=== PATIENT | male | born 1945 | race Caucasian/White ===

== ENCOUNTER 2017-02-17 19:28 | Emergency (ER) | payer MEDICARE, BC ==
[~2017-02-17] VITALS: Ht 177.8 cm; Wt 96.4 kg
[~2017-02-17 19:28] MED LIST: AMBIEN 10MG10 MG PO; PHENERGAN W/CO120 M1 PO
[2017-02-17 19:31] VITALS: TEMP 98
[2017-02-17] MEDS ORDERED: FLOMAX 0.40.4 MG/CAP PO (19:49)
[2017-02-17] MEDS ORDERED: NEURONTIN800 MG/TAB PO (19:50)
[2017-02-17] MEDS ORDERED: LIORESAL 1010 MG/TAB PO (19:51)
[2017-02-17] MEDS ORDERED: DITROPAN 5MG TAB5 MG PO (19:51)
[2017-02-17] MEDS ORDERED: CYMBALTA 20MG20 MG PO (19:53)
[2017-02-17 20:22] LABS: CALCIUM 9.7 mg/dL (8.4-10.2); CREATININE, serum 0.8 mg/dL (0.66-1.25); POTASSIUM 3.8 mmol/L (3.4-5.0)
[2017-02-17 23:17] LABS: PH 6 (5-8); SQUAMOUS EPITHELIAL None Seen /hpf; URINE APPEARANCE Clear; URINE BACTERIA None Seen /hpf; URINE BILIRUBIN Negative (NEGATIVE); URINE BLOOD Negative (NEGATIVE); URINE COLOR Yellow; URINE GLUCOSE Negative (NEGATIVE); URINE KETONE Negative (NEGATIVE); URINE RBC 0-2 /hpf; URINE UROBILINOGEN Negative (NEGATIVE); URINE WBC 0-2 /hpf
[2017-02-18 01:35] VITALS: BP 139/95; PULSE 70
== END 2017-02-18 01:35 | disposition home or self-care (01) ==
LOC: COL.ER 19:28
PROVIDERS: Emergency Medicine
DX: M54.5 Low back pain (principal); R32 Unspecified urinary incontinence; F17.210 Nicotine dependence, cigarettes, uncomplicated; Z98.890 Other specified postprocedural states
CPT/HCPCS: J2270

== ENCOUNTER → 2017-03-04 | Outpatient (REF) ==
[~2017-03-04] MED LIST changes: +CYMBALTA 20MG20 MG PO; +DITROPAN 5MG TAB5 MG PO; +FLOMAX 0.40.4 MG/CAP PO; +LIORESAL 1010 MG/TAB PO; +NEURONTIN800 MG/TAB PO
[2017-03-04 15:44] LABS: PSA-TOTAL 4.12 ng/mL (0-4); THYROID STIMULATING HORMONE 1.89 uIU/mL (0.465-4.680)
== END ==
LOC: ZLAB.WCH 14:17
PROVIDERS: Internal Medicine
DX: Z01.89 Encounter for other specified special examinations (principal)
CPT/HCPCS: G0103

== ENCOUNTER 2017-06-02 12:20 | Day surgery (SDC) | payer MEDICARE ==
[2017-06-02] VITALS (14 sets, daily range): BP systolic 97–156; BP diastolic 45–108; PULSE 63–83; TEMP 97.4–98
[~2017-06-02] VITALS: Ht 177.8 cm; Wt 101.2 kg
[2017-06-02] MEDS ORDERED: MOBIC15 MG PO (14:21)
[2017-06-02] MEDS ORDERED: ADIPEX-P37.5 MG PO (14:23)
[2017-06-02] MEDS ORDERED: LEVAQUIN 5500 MG/TA1 PO (14:25)
[2017-06-03 04:00] VITALS: BP 133/63; PULSE 79; TEMP 98.3
[2017-06-03 07:56] VITALS: BP 113/64; PULSE 75; TEMP 97.1
== END 2017-06-03 11:46 | disposition home or self-care (01) ==
LOC: SDCO 12:20 → JCC 17:55 → SDCO 06-03 11:46
DX: N31.2 Flaccid neuropathic bladder, not elsewhere classified (principal); N39.498 Other specified urinary incontinence; N32.81 Overactive bladder; N99.114 Postprocedural urethral stricture, male, unspecified; N48.89 Other specified disorders of penis; Z98.1 Arthrodesis status; M62.81 Muscle weakness (generalized); Z87.828 Personal history of other (healed) physical injury and trauma; Z82.49 Family history of ischemic heart disease and other diseases of the circulatory system
CPT/HCPCS: OP; A9284; C1769; J0585; J0690; J1100; J2405; J2704; J3010; J7120; Q9967

== ENCOUNTER → 2018-04-25 | Outpatient (REF) ==
[~2018-04-25] MED LIST changes: +ADIPEX-P37.5 MG PO; +LEVAQUIN 5500 MG/TA1 PO; +MOBIC15 MG PO
== END ==
LOC: ZLAB.WCH 09:58
DX: Z01.89 Encounter for other specified special examinations (principal)
CPT/HCPCS: G0103

== ENCOUNTER → 2018-08-08 | Outpatient (REF) | LOC: ZLAB.WCH 08:21 | DX: Z01.89 Encounter for other specified special examinations (principal) ==

== ENCOUNTER 2019-05-01 13:51 | Outpatient (RCR) | payer MEDICARE | END 2019-07-30 | disposition home or self-care (01) | LOC: WSST | DX: R13.13 Dysphagia, pharyngeal phase (principal) ==

== ENCOUNTER → 2019-05-10 | Outpatient (CLI) | payer MEDICARE | LOC: COL.RAD 15:14 | DX: R13.12 Dysphagia, oropharyngeal phase (principal) ==

== ENCOUNTER 2021-11-13 18:05 | Inpatient (IN) | payer MEDICARE ==
[~2021-11-13] VITALS: Ht 180.3 cm; Wt 104.6 kg
[2021-11-13 19:25] LABS: BASO % 0.2 % (0.0-2.0); EOS % 0.2 % (0.0-4.0); GRAN # 15.8 K/mm3 (1.4-6.5); LYMPH # 0.9 K/mm3 (1.2-3.4); LYMPH % 4.7 % (20.0-51.0); MEAN CELL VOLUME 93 fl (80.0-100.0); MEAN CORPUSCULAR HEMOGLOBIN 30 pg (27-31); MEAN CORPUSCULAR HGB CONC 32 g/dl (33.0-37.0); MEAN PLATELET VOLUME 10.1 fl (7.4-10.4); MONO # 1.1 K/mm3 (0.1-0.6); MONO % 6.3 % (1.7-9.3); PLATELET COUNT 150 K/mm3 (130-400); RED BLOOD COUNT 3.66 M/mm3 (4.20-5.60); REDCELL DISTRIBUTION WIDTH-CV 13.8 % (11.5-14.5)
[2021-11-13 19:44] LABS: BILIRUBIN,TOTAL 0.7 mg/dL (0.2-1.2); C-REACTIVE PROTEIN 20.21 mg/dL (0.00-0.50); CALCIUM 8.7 mg/dL (8.4-10.2); CREATININE, serum 1.37 mg/dL (0.72-1.25); POTASSIUM 4.7 mmol/L (3.5-4.5); TOTAL PROTEIN 6.6 gm/dL (6.2-8.1)
[2021-11-13 20:33] LABS: COLLECTION METHOD IN
[2021-11-13 20:46] LABS: PH 6 (5-8); SQUAMOUS EPITHELIAL None Seen /hpf (0-10); URINE APPEARANCE Cloudy (CLEAR/HAZY); URINE BACTERIA Rare /hpf (NONE SEEN); URINE BILIRUBIN Negative (NEGATIVE); URINE BLOOD 3+ (NEGATIVE); URINE COLOR Yellow (YELLOW); URINE GLUCOSE Negative (NEGATIVE); URINE KETONE Trace (NEGATIVE); URINE LEUKOCYTE ESTERASE 3+ (NEGATIVE); URINE NITRATE Negative (NEGATIVE); URINE PROTEIN(semi-quant) 2+ (NEGATIVE); URINE RBC >50 /hpf (0-2); URINE UROBILINOGEN Negative (NEGATIVE)
--- NOTE | 2021-11-14 00:14 | NUR ---
PATIENT ADMITTED TO ROOM 354 STATED THAT HE HAS BEEING HAVING DIFFICULTY FOR THE PAST COUPLE DAYS. HE FEELS CONFUSED AND JUST NOT IN HIS RIGHT MIND, URINE IS VERY FOULD SMELLING AND LEIDY. PATIENT DID RECEIVE ROCEPHIN IN ER AND 2L OF NS. 900CC OF URINE OUTPUT NOTED UPON ARRIVAL. PATIENT STATED THAT HE WAS A QUADRAPLEGIC ABLE TO TRANSFER STAND BY X2 ASSIST. REVIEWED MEDICATION LIST WITH PATIENT PENDING HOSPITALIST REVIEW. NO C/O PAIN OR DISCOMFORT BED ALARM ON FOR FALL RISK AND SAFETY PRECAUTIONS DUE TO PATIENT HAVING 2 FALLS EARLIER IN THE DAY. CLEANSED SUPRAPUBIC CATHETER AND APPLIED DRAINAGE SPONGE. ORIENTED TO ROOM AND CALL LIGHT SYSTEM. CHANGED LEG BAG, LARGER HUTCHINSON BAG, BELOW BLADDER FLOWING ADEQUATELY. WILL CONTINUE TO MONITOR FOR ANY CHANGES.
[2021-11-14 00:24] VITALS: BP 125/64; PULSE 63; TEMP 98.5
[2021-11-14 05:12] VITALS: BP 146/85; PULSE 95; TEMP 98.1
[2021-11-14 07:06] LABS: BASO % 0.1 % (0.0-2.0); EOS % 0.2 % (0.0-4.0); GRAN # 12.7 K/mm3 (1.4-6.5); HEMOGLOBIN 10.7 g/dl (13.5-18.0); LYMPH % 6.6 % (20.0-51.0); MEAN CELL VOLUME 95 fl (80.0-100.0); MEAN CORPUSCULAR HEMOGLOBIN 30 pg (27-31); MEAN CORPUSCULAR HGB CONC 32 g/dl (33.0-37.0); MEAN PLATELET VOLUME 10.3 fl (7.4-10.4); MONO % 6.6 % (1.7-9.3); PLATELET COUNT 141 K/mm3 (130-400); RED BLOOD COUNT 3.55 M/mm3 (4.20-5.60); REDCELL DISTRIBUTION WIDTH-CV 13.9 % (11.5-14.5)
[2021-11-14 07:10] LABS: HEMATOCRIT 33.6 % (42.0-52.0)
[2021-11-14 07:44] LABS: CALCIUM 8.4 mg/dL (8.4-10.2); CREATININE, serum 1.14 mg/dL (0.72-1.25); POTASSIUM 4.3 mmol/L (3.5-4.5)
[2021-11-14 07:48] VITALS: BP 137/72; PULSE 89; TEMP 98.7
--- NOTE | 2021-11-14 11:16 | NUR ---
Initial visit; Patient states he has a hard time making sense when he talks but part of the time he did let Talent Partner know his family was coming from [place], that he is from [place] and talks about a specific health issue. Leandro thanked Talent Partner for visiting, using her name that she mentioned at first meeting, so he remembers some things. Talent Partner wished Leandro well and offered God's blessings. She will keep Leandro in her prayers.
[2021-11-14 11:41] VITALS: BP 153/98; PULSE 85; TEMP 98.3
[2021-11-14 15:45] VITALS: BP 181/77; PULSE 139; TEMP 98.7
--- NOTE | 2021-11-14 16:02 | NUR ---
Lard Maker met with patient Leandro for intake assessment/discharge planning: Patient presents alert and oriented, and he is willing to speak. He states he lives in a 2-year old home with his spouse Kianna ([phone]); his spouse will arrive to the hospital today to visit. He states he has worked with a social work case manager 5 years ago when he was admitted to a spinal cord rehabilitation center in [place] after having fallen from a ladder while painting a friend's home. He states since, he has had mobility issues, and he has a caregiver from [facility] complete attendant care activities to assist him in his ADLs, every day. He states he is satisfied with this service. His spouse completes the home IADLS, and their home was built to be accessible with wide doorways/entryways, a walk-in shower and minimal steps to maneuver. He states he has been very independent until the last few days, "It came on quick." He does utilize a walker, upright walker, and seated walker to ambulate, and he has been mowing the lawn lately, driving the [id number] to the gym 1 mile from home 3-4 days a week and using the Nu-Step machine for 35 minutes cardio. He states he has "substantial daily benefits" for his in-home care services, "This is how we survive." He states he does have additional family support, including two 45-year-old twin sons nearby and many friends. He has a DPOA-HC completed, but it is not on file at this hospital; he will alert Kianna his spouse with request to bring a copy to be filed in his medical record. He has nominated Kianna as his DPOA-HC. He expresses no concerns with any needs he may have at discharge. He plans to continue to work with PT/OT and he is in agreement for any services they and/or his medical team recommend at discharge. He feels he has made progress already in his recovery since yesterday. Social Work will continue to follow. *Discharge plan: To home with daily, in-home extension agent care and supportive family vs. rehab services as indicated*
[2021-11-14 16:42] LABS: CALCIUM 8.8 mg/dL (8.4-10.2); CREATININE, serum 1.05 mg/dL (0.72-1.25); MAGNESIUM 2.1 mg/dL (1.6-2.6); POTASSIUM 4.1 mmol/L (3.5-4.5)
[2021-11-14 16:51] LABS: TROPONIN-I 0.061 ng/mL (0.00-0.033)
[2021-11-14 21:50] VITALS: BP 145/80; PULSE 87; TEMP 98.7
[2021-11-15 00:29] VITALS: BP 132/72; PULSE 72; TEMP 98.1
--- NOTE | 2021-11-15 00:33 | NUR ---
AAO AT BEDSIDE PATIENT THIS EVENING STATED HE NO LONGER TAKES OXYBUTON HOME MEDICATION AND REFUSED THIS EVENING. PATIENT WAS ABLE TO AMBULATE TO BATHROOM WITH WALKER X2 ASSIST WITH GAIT BELT. NOTED EDEMA TO RLE +2. PRIOR TO AMBULATION PATIENT WAS C/O SOA AT REST NEW ORDER FOR NEB TX AND ASA 325MG X1 DOSE ALSO INFORMED HOSPITALIST AROUND 1948 OF SECOND TROPONIN TRENDING UP AT 0.075. PATIENT DENIES ANY CHEST PAIN BUT WAS HAVING SOME SOA. NOTED SOME AUDIBLE WHEEZING. PROVIDED BREATHING TREATMENT AND ASA PATIENT NO LONGER WHEEZING. STATED FEELS SLIGHTLY BETTER TRANSFERED TO [facility] FOR COMFORT PENDING 3RD TROPONIN. PATIENT IS SLEEPING AT THIS TIME. WILL CONTINUE TO MONITOR FOR ANY CHANGES. PATIENT DID REQUEST AMBIEN UNABLE TO SLEEP AND RELAX AFTER PROVIDING SCHEDULE EVENING MEDICATION.
[2021-11-15 04:38] VITALS: BP 155/88; PULSE 86; TEMP 99.6
[2021-11-15 08:05] LABS: BASO % 0.2 % (0.0-2.0); EOS # 0.1 K/mm3 (0.0-0.7); GRAN # 7.8 K/mm3 (1.4-6.5); HEMOGLOBIN 11.1 g/dl (13.5-18.0); LYMPH # 0.8 K/mm3 (1.2-3.4); MEAN CELL VOLUME 94 fl (80.0-100.0); MEAN CORPUSCULAR HEMOGLOBIN 30 pg (27-31); MEAN CORPUSCULAR HGB CONC 32 g/dl (33.0-37.0); MEAN PLATELET VOLUME 9.9 fl (7.4-10.4); MONO # 0.8 K/mm3 (0.1-0.6); MONO % 8.4 % (1.7-9.3); PLATELET COUNT 177 K/mm3 (130-400); RED BLOOD COUNT 3.71 M/mm3 (4.20-5.60); REDCELL DISTRIBUTION WIDTH-CV 13.8 % (11.5-14.5)
[2021-11-15 08:07] LABS: HEMATOCRIT 34.7 % (42.0-52.0)
[2021-11-15 08:23] LABS: CALCIUM 8.8 mg/dL (8.4-10.2); CREATININE, serum 0.87 mg/dL (0.72-1.25)
[2021-11-15 08:48] VITALS: BP 154/86; PULSE 74; TEMP 98.1
[2021-11-15 13:22] VITALS: BP 151/84; PULSE 75; TEMP 97.9
[2021-11-15 21:14] VITALS: BP 143/89; PULSE 82; TEMP 98.3
[2021-11-15 23:50] VITALS: BP 153/91; PULSE 78; TEMP 98.4
[2021-11-16 04:40] VITALS: BP 171/94; PULSE 78; TEMP 98
[2021-11-16 05:10] VITALS: BP 167/99
[2021-11-16 06:51] LABS: BASO % 0.3 % (0.0-2.0); EOS # 0.3 K/mm3 (0.0-0.7); EOS % 4.8 % (0.0-4.0); GRAN # 4.1 K/mm3 (1.4-6.5); GRAN % 64.4 % (42.2-75.2); HEMOGLOBIN 10.5 g/dl (13.5-18.0); LYMPH # 1.1 K/mm3 (1.2-3.4); LYMPH % 17.1 % (20.0-51.0); MEAN CELL VOLUME 94 fl (80.0-100.0); MEAN CORPUSCULAR HEMOGLOBIN 30 pg (27-31); MEAN CORPUSCULAR HGB CONC 32 g/dl (33.0-37.0); MEAN PLATELET VOLUME 9.7 fl (7.4-10.4); MONO # 0.8 K/mm3 (0.1-0.6); MONO % 12.9 % (1.7-9.3); PLATELET COUNT 180 K/mm3 (130-400); RED BLOOD COUNT 3.47 M/mm3 (4.20-5.60); REDCELL DISTRIBUTION WIDTH-CV 13.7 % (11.5-14.5)
[2021-11-16 06:53] LABS: HEMATOCRIT 32.6 % (42.0-52.0)
[2021-11-16 07:15] LABS: CALCIUM 8.8 mg/dL (8.4-10.2); CREATININE, serum 0.82 mg/dL (0.72-1.25)
[2021-11-16 07:54] LABS: POTASSIUM 3.9 mmol/L (3.5-4.5)
[2021-11-16 11:27] VITALS: BP 172/99; PULSE 69; TEMP 97.8
[2021-11-16 11:31] VITALS: BP 169/91
[2021-11-16 16:44] VITALS: BP 158/78; PULSE 71; TEMP 97.8
[2021-11-16 20:07] VITALS: BP 163/101; PULSE 85; TEMP 97.7
[2021-11-17] VITALS (7 sets, daily range): BP systolic 125–177; BP diastolic 64–98; PULSE 66–75; TEMP 97.8–99.2
[2021-11-17 06:06] LABS: BASO % 0.4 % (0.0-2.0); EOS # 0.6 K/mm3 (0.0-0.7); EOS % 7.6 % (0.0-4.0); GRAN # 4.3 K/mm3 (1.4-6.5); GRAN % 59.9 % (42.2-75.2); HEMOGLOBIN 10.6 g/dl (13.5-18.0); LYMPH # 1.5 K/mm3 (1.2-3.4); LYMPH % 20.7 % (20.0-51.0); MEAN CELL VOLUME 91 fl (80.0-100.0); MEAN CORPUSCULAR HEMOGLOBIN 30 pg (27-31); MEAN CORPUSCULAR HGB CONC 33 g/dl (33.0-37.0); MEAN PLATELET VOLUME 9.5 fl (7.4-10.4); MONO # 0.8 K/mm3 (0.1-0.6); MONO % 10.8 % (1.7-9.3); PLATELET COUNT 201 K/mm3 (130-400); RED BLOOD COUNT 3.57 M/mm3 (4.20-5.60); REDCELL DISTRIBUTION WIDTH-CV 13.4 % (11.5-14.5)
[2021-11-17 06:19] LABS: HEMATOCRIT 32.6 % (42.0-52.0)
[2021-11-17 06:25] LABS: CALCIUM 8.7 mg/dL (8.4-10.2); CREATININE, serum 0.84 mg/dL (0.72-1.25); POTASSIUM 3.9 mmol/L (3.5-4.5)
--- NOTE | 2021-11-17 09:00 | NUR ---
Patient is walking in the room assisted with the walker, states he wants to take a shower. Will be assisted by aid. Telemetry in place NSR. Assessment completed, meds provided. No other needs at this time. Call light within reach.
--- NOTE | 2021-11-17 11:19 | NUR ---
ALICIA staffed with the PA. The patient may be able to discharge tomorrow and ID is recommending IV Cefepime for 10 days. Staffed with pharmacy for frequency: 2 gm every 8 hours. ALICIA and the PA met with the patient to update and to discuss where he can receive the IV antibiotics: as an outpatient at [facility], in the home with home health and someone able to help administer the med and be teachable, or a SNF/SB. The patient does not want to go to a SNF. He states that he already changes and takes care of his catheter. He would prefer to return home and do the IV antibiotics at home with home health. ALICIA contacted the patient's , Kianna, and reviewed the above options with her. Kianna is in agreement of doing the IV antibiotics at home and feels comfortable administering them. She states that the patient had home health from [facility] in the past and she would like to use them again. She is agreeable to using [facility]. ALICIA contacted and faxed a referral to Beck at [facility]. Beck reports that they are able to accept the patient for services. ALICIA contacted and faxed the patient's information to Fabiola at [facility]. Fabiola plans to run the patient's benefits to find out if he will have any hvv-rk-[id number] costs. She states that she will get with the patient's about setting up a time for education. *Discharge plan: home with , home health, and previous private duty services*
--- NOTE | 2021-11-17 11:47 | NUR ---
SW presented and read the IM form outloud to the patient. The patient verbalized understanding and signed the form. SW provided him with a copy.
--- NOTE | 2021-11-17 14:19 | NUR ---
Fabiola, at [facility], reports that the patient would have an [id number] cost of $46 a week for the medication and $15 a day for supplies. Fabiola states that she will get in contact with the patient's to set up a time tomorrow to go over education and to inform about the [id number] cost. ALICIA met with the patient and updated him on the above. The patient verbalized that he is okay with having and paying the above vzg-os-jreyam cost.
[2021-11-17] MEDS ORDERED: MAXIPIME2 GM IV (14:30)
--- NOTE | 2021-11-17 18:05 | NUR ---
Patient has been stable along the day. He has a good urine output, yellow cloudy output. Telemetry was discontinued. Report will be given to night RN.
[2021-11-18 04:28] VITALS: BP 130/62; PULSE 67; TEMP 99.2
--- NOTE | 2021-11-18 07:48 | NUR ---
Patient is resting in bed, alert and orieted x 4, VSS. Denies pain at the moment. Assessment completed, meds provided, no other needs at this time. Call light within reach.
[2021-11-18 07:54] VITALS: BP 166/82; PULSE 70; TEMP 97.4
[2021-11-18] MEDS ORDERED: NORVASC 5MG5 MG/TAB PO (11:07)
[2021-11-18 11:08] VITALS: BP 132/70; PULSE 77; TEMP 97.8
[2021-11-18] MEDS ORDERED: MOTRIN 400400 MG/TAB PO (11:09)
--- NOTE | 2021-11-18 14:28 | NUR ---
Patient was provided with discharge information, all questions answered. Central line, simple lumen in right upper arm placed. Peripheral IV removed by AIV nurse. Pt was acompanied by staff by wheelchair to the ED entrance.
--- NOTE | 2021-11-18 15:03 | NUR ---
The clinical team is ready to discharge the patient today. ALICIA contacted Fabiola at [facility]. Fabiola confirms the patient's antibiotics will be delivered to his home today. She states that she will be up to the hospital around noon to provide education to the . The patient discharged back home with his today, 11/18, with home IV antibiotics from [facility] and home health services for detention/PT/OT from [facility]. ALICIA notified and faxed orders and confirmation of the PICC line placement to [facility] and [facility]. No additional needs at this time.
== END 2021-11-18 14:39 | disposition home health service (06) | DRG 698 ==
LOC: COL.ER 18:05 → MEDICAL 21:39
PROVIDERS: Emergency Medicine; Nurse Practitioner Family; Student in an Organized Health Care Education/Training Program; ADMIT Internal Medicine
PROC: 02HV33Z Insertion of Infusion Device into Superior Vena Cava, Percutaneous Approach (ICD-10-PCS; principal; 2021-11-18)
DX: T83.511A Infection and inflammatory reaction due to indwelling urethral catheter, initial encounter (principal); G82.50 Quadriplegia, unspecified; A41.50 Gram-negative sepsis, unspecified; N17.9 Acute kidney failure, unspecified; N39.0 Urinary tract infection, site not specified; F32.A Depression, unspecified; Z66 Do not resuscitate; Z20.822 Contact with and (suspected) exposure to COVID-19; N31.9 Neuromuscular dysfunction of bladder, unspecified; Y83.8 Other surgical procedures as the cause of abnormal reaction of the patient, or of later complication, without mention of misadventure at the time of the procedure; Y92.89 Other specified places as the place of occurrence of the external cause; I10 Essential (primary) hypertension; B96.5 Pseudomonas (aeruginosa) (mallei) (pseudomallei) as the cause of diseases classified elsewhere; B96.89 Other specified bacterial agents as the cause of diseases classified elsewhere; Z72.89 Other problems related to lifestyle; Z87.81 Personal history of (healed) traumatic fracture
CPT/HCPCS: 99223-AI; 99231-AI; 99232-AI; 99233-AI; C1751; J0360; J0692; J0696; J1644; J7030

== ENCOUNTER 2022-07-03 17:25 | Emergency (ER) | payer MEDICARE ==
[~2022-07-03] VITALS: Ht 177.8 cm; Wt 104.5 kg
[~2022-07-03 17:25] MED LIST changes: +MAXIPIME2 GM IV; +MOTRIN 400400 MG/TAB PO; +NORVASC 5MG5 MG/TAB PO
[2022-07-03 17:26] VITALS: TEMP 100
[2022-07-03 17:44] LABS: BASO % 0.1 % (0.0-2.0); EOS # 0.1 K/mm3 (0.0-0.7); EOS % 0.4 % (0.0-4.0); GRAN # 11.5 K/mm3 (1.4-6.5); GRAN % 82.2 % (42.2-75.2); HEMATOCRIT 37.1 % (42.0-52.0); HEMOGLOBIN 11.7 g/dl (13.5-18.0); LYMPH # 1.1 K/mm3 (1.2-3.4); LYMPH % 7.6 % (20.0-51.0); MEAN CELL VOLUME 97 fl (80.0-100.0); MEAN CORPUSCULAR HEMOGLOBIN 31 pg (27-31); MEAN CORPUSCULAR HGB CONC 32 g/dl (33.0-37.0); MEAN PLATELET VOLUME 9.6 fl (7.4-10.4); MONO # 1.3 K/mm3 (0.1-0.6); MONO % 9.3 % (1.7-9.3); PLATELET COUNT 197 K/mm3 (130-400); RED BLOOD COUNT 3.81 M/mm3 (4.20-5.60); REDCELL DISTRIBUTION WIDTH-CV 13.5 % (11.5-14.5)
[2022-07-03] MEDS ORDERED: CYMBALTA 30MG30 MG PO (17:57)
[2022-07-03] MEDS ORDERED: VESICARE10 MG PO (17:58)
[2022-07-03 18:04] LABS: BILIRUBIN,TOTAL 0.4 mg/dL (0.2-1.2); C-REACTIVE PROTEIN 9.26 mg/dL (0.00-0.50); CALCIUM 8.6 mg/dL (8.4-10.2); CREATININE, serum 1.22 mg/dL (0.72-1.25); POTASSIUM 4.4 mmol/L (3.5-4.5); TOTAL PROTEIN 6.3 gm/dL (6.2-8.1)
[2022-07-03 18:16] LABS: COLLECTION METHOD CLEAN CATCH
[2022-07-03 18:26] LABS: URINE APPEARANCE Cloudy (CLEAR/HAZY); URINE BLOOD 3+ (NEGATIVE); URINE COLOR Yellow (YELLOW); URINE GLUCOSE Negative (NEGATIVE); URINE KETONE Negative (NEGATIVE); URINE NITRATE Negative (NEGATIVE); URINE PROTEIN(semi-quant) 3+ (NEGATIVE); URINE UROBILINOGEN 0.2 E.U/dL (0.2-1.0)
[2022-07-03 18:28] LABS: MUCOUS Present (NOT PRESENT); URINE BACTERIA None Seen /hpf (NONE SEEN); URINE RBC >50 /hpf (0-2)
[2022-07-03] MEDS ORDERED: LEVAQUIN 5500 MG/TA1 PO (18:39)
[2022-07-03 18:53] VITALS: BP 138/85; PULSE 93
== END 2022-07-03 18:53 | disposition home or self-care (01) ==
LOC: COL.ER 17:25
PROVIDERS: Family Medicine
DX: N39.0 Urinary tract infection, site not specified (principal); Z20.822 Contact with and (suspected) exposure to COVID-19
CPT/HCPCS: J0696; J7030

== ENCOUNTER 2023-01-15 15:57 | Inpatient (IN) | payer MEDICARE ==
[~2023-01-15] VITALS: Ht 177.8 cm; Wt 99.6 kg
[~2023-01-15 15:57] MED LIST changes: +CYMBALTA 30MG30 MG PO; +VESICARE10 MG PO
[2023-01-15 16:17] LABS: BASO % 0.2 % (0.0-2.0); GRAN # 10.6 K/mm3 (1.4-6.5); GRAN % 85.5 % (42.2-75.2); HEMATOCRIT 41.2 % (42.0-52.0); HEMOGLOBIN 13.2 g/dl (13.5-18.0); LYMPH # 0.9 K/mm3 (1.2-3.4); LYMPH % 7.1 % (20.0-51.0); MEAN CELL VOLUME 94 fl (80.0-100.0); MEAN CORPUSCULAR HEMOGLOBIN 30 pg (27-31); MEAN CORPUSCULAR HGB CONC 32 g/dl (33.0-37.0); MEAN PLATELET VOLUME 9.7 fl (7.4-10.4); MONO # 0.8 K/mm3 (0.1-0.6); MONO % 6.8 % (1.7-9.3); PLATELET COUNT 183 K/mm3 (130-400); RED BLOOD COUNT 4.39 M/mm3 (4.20-5.60); REDCELL DISTRIBUTION WIDTH-CV 13.9 % (11.5-14.5)
[2023-01-15 16:37] LABS: ALBUMIN 3.8 gm/dL (3.4-4.8); BILIRUBIN,TOTAL 0.5 mg/dL (0.2-1.2); C-REACTIVE PROTEIN 3.06 mg/dL (0.00-0.50); CALCIUM 9.1 mg/dL (8.4-10.2); CREATININE, serum 1.16 mg/dL (0.72-1.25); POTASSIUM 4.5 mmol/L (3.5-4.5); TOTAL PROTEIN 7.5 gm/dL (6.2-8.1)
[2023-01-15 17:08] LABS: COLLECTION METHOD IN
[2023-01-15 17:13] LABS: PH 5.5 (5.0-8.5); URINE APPEARANCE Clear (CLEAR/HAZY); URINE BLOOD TRACE-INTACT (NEGATIVE); URINE COLOR Yellow (YELLOW); URINE GLUCOSE Negative (NEGATIVE); URINE KETONE 2+ (NEGATIVE); URINE NITRATE Negative (NEGATIVE); URINE PROTEIN(semi-quant) 2+ (NEGATIVE)
[2023-01-15 17:14] LABS: MUCOUS Present (NOT PRESENT); SQUAMOUS EPITHELIAL 0-2 /hpf (0-10); URINE BACTERIA None Seen /hpf (NONE SEEN)
[2023-01-15] MEDS ORDERED: OMNICEF 300MG300 MG PO (17:36)
[2023-01-15] MEDS ORDERED: MONUROL 3 GM3 G/PKT PO (19:36)
[2023-01-15] MEDS ORDERED: XALATAN EYE DROPS OU (19:36)
[2023-01-15] MEDS ORDERED: ULTRAM 50MG TAB50 MG PO (19:39)
[2023-01-15] MEDS ORDERED: NORVASC 5MG5 MG/TAB PO (19:39)
[2023-01-15] MEDS ORDERED: VESICARE10 MG PO (19:40)
[2023-01-15] MEDS ORDERED: LIORESAL20 MG PO ×2 (19:42→19:43)
[2023-01-15 21:14] VITALS: BP 159/87; PULSE 93; TEMP 98.4
--- NOTE | 2023-01-15 23:07 | NUR ---
THE PATIENT ARRIVED VIA BED ACCOMPANIED BY ED STAFF. THE PATIENT WAS ALERT, ORIENTED AND APPROPRIATE. THE PATIENT WAS ORIENTED TO THE ROOM AND BED CONTROLS. THE PATIENT WAS ABLE TO DEMONSTRATE CALL LIGHT USE. THE PATIENT DOES HAVE LIMITED USE OF HIS ARMS AND HANDS. CALL LIGHT WITHIN REACH, BED IN LOW POSITION, BED ALARM ON.
[2023-01-16] VITALS (7 sets, daily range): BP systolic 127–153; BP diastolic 61–83; PULSE 73–81; TEMP 98.2–99.2
--- NOTE | 2023-01-16 05:41 | NUR ---
LAB CALLED AT 0535 WITH BLOOD CULTURES POSITIVE FOR GRAM POSITIVE COCCI IN CHAINS. BARB LYNN APRN NOTIFIED AT 05:40.
[2023-01-16 06:58] LABS: BASO % 0.2 % (0.0-2.0); EOS % 0.1 % (0.0-4.0); GRAN % 77.3 % (42.2-75.2); HEMOGLOBIN 11.8 g/dl (13.5-18.0); LYMPH # 1.4 K/mm3 (1.2-3.4); LYMPH % 13.6 % (20.0-51.0); MEAN CELL VOLUME 92 fl (80.0-100.0); MEAN CORPUSCULAR HEMOGLOBIN 30 pg (27-31); MEAN CORPUSCULAR HGB CONC 33 g/dl (33.0-37.0); MEAN PLATELET VOLUME 9.7 fl (7.4-10.4); MONO # 0.9 K/mm3 (0.1-0.6); MONO % 8.5 % (1.7-9.3); PLATELET COUNT 159 K/mm3 (130-400); RED BLOOD COUNT 3.88 M/mm3 (4.20-5.60); REDCELL DISTRIBUTION WIDTH-CV 14.1 % (11.5-14.5)
[2023-01-16 06:59] LABS: HEMATOCRIT 35.5 % (42.0-52.0)
[2023-01-16 07:13] LABS: ALBUMIN 3.3 gm/dL (3.4-4.8); BILIRUBIN,TOTAL 0.4 mg/dL (0.2-1.2); CALCIUM 8.6 mg/dL (8.4-10.2); CREATININE, serum 0.97 mg/dL (0.72-1.25); POTASSIUM 4.1 mmol/L (3.5-4.5); TOTAL PROTEIN 6.4 gm/dL (6.2-8.1)
--- NOTE | 2023-01-16 07:20 | NUR ---
DR. TELLES NOTIFIED OF UPDATED BLOOD CULTURE RESULTS AT 07:20. 3 OF 4 BLOOD CULTURE BOTTLES ARE GROWING GROUP B STREP. DR. TELLES STATED THAT HE WAS GOING TO CHANGE THE PATIENTS ANTIBIOTIC TO VANCO AND THAT HE WOULD PUT THE ORDER IN.
[2023-01-16] MEDS ORDERED: UREX1 GM PO (10:37)
--- NOTE | 2023-01-16 12:00 | NUR ---
PER DR GATES HE IS OK WITH PATIENTS EXCHANGING HIS SUPRAPUBIC CATHETER.
--- NOTE | 2023-01-16 13:00 | NUR ---
PATINET AWAKE AND ALERT, RESTING IN BED. PATINET DENIES ANY NEEDS OR COMPLAINTS AT THIS TIME. FALL PRECAUTIONS IN PLACE.
--- NOTE | 2023-01-16 13:46 | NUR ---
SW met with patient to complete intake. Patient states he lives in [place] with spouse Kianna De La Torre [phone]. Patient provides he utilizes and upright walker independently. Patient provides he obtains assistance from home care everyday for an hour. PCP is Dr. Lane, and pharmacy is [place]. Patient provides that his spouse is his DPOA/HC. Patient provides he plans to return to his home upon DC. SW will continue to follow. DC plan: home.
[2023-01-17] VITALS (8 sets, daily range): BP systolic 112–139; BP diastolic 48–90; PULSE 63–70; TEMP 9.7
--- NOTE | 2023-01-17 02:29 | NUR ---
NURSING SHIFT ASSESSMENT COMPLETED. THE PATIENT WAS ALERT, ORIENTED AND APPROPRIATE. THE PATIENT WANTED TO HAVE A CONVERSATION ABOUT POSSIBLY BEING DISCHARGED TOMORROW TO GO HOME AND IF NEED BE HAVE OP ANTIBIOTICS INSTEAD OF HAVING TO STAY IN THE HOSPITAL. THIS LAND SURVEY TECHNICIAN DESCRIBED WHAT THAT MIGHT LOOK LIKE IF IT WERE TO BE AN OPTION AND THE PATIENT WAS ENCOURAGED TO TALK WITH THE DOCTOR IN THE MORNING REGARDING ANY POSSIBLE DISCHARGE POSSIBILITIES. NO OTHER NEEDS AT THIS TIME. THE PLAN OF CARE AND EVENING MEDICATIONS REVIEWED. CALL LIGHT WITHIN REACH, BED IN LOW POSITION.
[2023-01-17 06:11] LABS: BASO % 0.3 % (0.0-2.0); EOS # 0.3 K/mm3 (0.0-0.7); EOS % 3.6 % (0.0-4.0); GRAN % 65.9 % (42.2-75.2); HEMOGLOBIN 11.3 g/dl (13.5-18.0); LYMPH # 1.7 K/mm3 (1.2-3.4); LYMPH % 18.8 % (20.0-51.0); MEAN CELL VOLUME 92 fl (80.0-100.0); MEAN CORPUSCULAR HEMOGLOBIN 30 pg (27-31); MEAN CORPUSCULAR HGB CONC 33 g/dl (33.0-37.0); MEAN PLATELET VOLUME 9.9 fl (7.4-10.4); PLATELET COUNT 157 K/mm3 (130-400); RED BLOOD COUNT 3.73 M/mm3 (4.20-5.60)
[2023-01-17 06:12] LABS: HEMATOCRIT 34.2 % (42.0-52.0)
[2023-01-17 06:33] LABS: ALBUMIN 2.9 gm/dL (3.4-4.8); BILIRUBIN,TOTAL 0.4 mg/dL (0.2-1.2); CALCIUM 8.6 mg/dL (8.4-10.2); CREATININE, serum 0.81 mg/dL (0.72-1.25); POTASSIUM 3.9 mmol/L (3.5-4.5)
--- NOTE | 2023-01-17 09:30 | NUR ---
PT AWAKE AND SITTING ON SIDE OF BED UPON ENTERING. FLUIDS RUNNING PER ORDER AND SUPRAPUBIC CATHETER DRAINING DEPENDENTLY WITHOUT DIFFICULTY. BILATERAL LOWER EXTREMITY EDEMA R>L. PT REPORTS CHRONIC BACK PAIN AND GIVEN SCHEDULED PAIN MED. PT DENIES NEEDS AT THIS TIME. CALL LIGHT IN REACH, BED IN LOWEST POSITION.
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
--- NOTE | 2023-01-17 12:00 | NUR ---
THIS NURSE NOTIFIED DR TELLES OF LOVENOX WRITTEN VTE IN NOTES BUT THERE IS NO ORDER. DR TELLES SAID THAT PT IS OKAY TO HAVE SCDS VTE INSTEAD OF LOVENOX. NO NEW ORDERS AT THIS TIME
--- NOTE | 2023-01-17 21:55 | NUR ---
Patient assessed around 1949. Reported chronic pain to back, no more than usual. Denies SOB and dyspnea. LS CTA. HRR. Telemetry in place. Patient has redness/warmth/red bumps to LLE. Sat in recliner until around 2129. Assisted with brushing teeth and assisted into bed at that time. In bed with call light within reach. Bed alarm on.
[2023-01-18] VITALS (13 sets, daily range): BP systolic 108–170; BP diastolic 52–81; PULSE 59–87; TEMP 97.4–98.1
--- NOTE | 2023-01-18 05:54 | NUR ---
Patient had called earlier in the night requesting Ambien, stating that he has taken it for the last 30 years. Did not see it on patient's home med list, and did not see it in the recently filled list. Called Janeth, and order received for Melatonin and given per orders. Patient has been resting in bed with eyes closed, respirations even and unlabored. Continues on IV fluids and ABX per orders. Voices no questions, needs, or concerns at this time. In bed with call light within reach. High fall risk precautions in place. Bed alarm on.
[2023-01-18 06:55] LABS: BASO % 0.3 % (0.0-2.0); EOS # 0.4 K/mm3 (0.0-0.7); EOS % 6.3 % (0.0-4.0); GRAN # 3.7 K/mm3 (1.4-6.5); GRAN % 54.5 % (42.2-75.2); HEMOGLOBIN 10.7 g/dl (13.5-18.0); LYMPH # 1.7 K/mm3 (1.2-3.4); LYMPH % 24.7 % (20.0-51.0); MEAN CELL VOLUME 95 fl (80.0-100.0); MEAN CORPUSCULAR HEMOGLOBIN 30 pg (27-31); MEAN CORPUSCULAR HGB CONC 32 g/dl (33.0-37.0); MONO # 0.9 K/mm3 (0.1-0.6); MONO % 13.9 % (1.7-9.3); PLATELET COUNT 168 K/mm3 (130-400); RED BLOOD COUNT 3.56 M/mm3 (4.20-5.60); REDCELL DISTRIBUTION WIDTH-CV 13.8 % (11.5-14.5)
[2023-01-18 06:56] LABS: HEMATOCRIT 33.7 % (42.0-52.0)
[2023-01-18 07:15] LABS: ALBUMIN 2.8 gm/dL (3.4-4.8); BILIRUBIN,TOTAL 0.3 mg/dL (0.2-1.2); CALCIUM 8.8 mg/dL (8.4-10.2); CREATININE, serum 0.77 mg/dL (0.72-1.25); POTASSIUM 3.9 mmol/L (3.5-4.5); TOTAL PROTEIN 5.8 gm/dL (6.2-8.1)
--- NOTE | 2023-01-18 08:30 | NUR ---
PT ASLEEP IN BED UPON ENTERING, RISE AND FALL OF CHEST NOTED. PT REPORTS CHRONIC BACK PAIN AND GIVEN SCHEDULED PAIN MED. PATCH OF REDNESS NOTED TO BACK AND SIDES OF LEFT CALF. PT REPORTS "I DONT HAVE MUCH FEELING IN MY LEGS" BUT REPORTS THIS BEING A NEW DISCOVERY, NEY BURNHAM NOTIFIED. FLUIDS RUNNING PER ORDER AND PT DENIES NEEDS AT THIS TIME. CALL LIGHT IN REACH, BED IN LOWEST POSITION.
--- NOTE | 2023-01-18 18:55 | NUR ---
PT IV PULLED OUT WHILE ADJUSTING IN BED. THIS NURSE ATTEMPTED 2 IV STARTS AND 2 OTHER NURSES ON THE FLOOR ATTEMPTED. JASKARAN RN FROM ED CAME UP AND INSERTED 20G TO LEFT UPPER ARM. THIS NURSE ADMINISTERED ANTIBIOTIC PER ORDER AND FLUIDS RIGHT AFTER WHEN IV INFILTRATED. CHELO PÉREZ CALLED AND UPDATED ON IV ATTEMPTS AND NOTIFIED THIS NURSE THAT SHE IS OKAY WITH PT NOT HAVING AN IV AT THIS TIME AND WILL PUT IN AN ADVANCED IV SERVICES CONSULT. PT DENIES NEEDS AT THIS TIME
--- NOTE | 2023-01-18 22:30 | NUR ---
Patient assessed around 2029. Alert and oriented, and able to make needs known. Patient has no IV access. [facility] is aware, and order for advanced IV services to see patient tomorrow. at bedside. Offered shower, but did not want staff to assist with shower. Reminded that for safety purposes that staff would need to assist him in and out of the shower. Requested bed bath instead. Voices no further questions, needs, or concerns at this time. In bed with call light within reach. High fall risk precautions in place. Bed alarm on.
[2023-01-19 00:09] VITALS: BP_SYST 127
[2023-01-19 02:56] VITALS: BP 101/59; PULSE 57; TEMP 97.4
[2023-01-19 03:18] VITALS: BP_SYST 101
--- NOTE | 2023-01-19 05:59 | NUR ---
Patient has denied having pain and discomfort this shift. HR has been tavia, 40-50s this shift. At one point, telemetry called and stated HR was 38. VSS, and when woke up, patient's HR increased to 64. In bed with call light within reach. High fall risk precautions in place. Bed alarm on.
[2023-01-19 07:38] VITALS: BP 166/76; PULSE 64; TEMP 97.5
[2023-01-19] MEDS ORDERED: CEPHALEXIN500 M1 PO (07:49)
--- NOTE | 2023-01-19 07:56 | NUR ---
Order received for PICC placement, Per NEY Quick, pt will be switching to PO medications for discharge today and no longer needs PICC line.
--- NOTE | 2023-01-19 08:00 | NUR ---
Patient is resting in bed, alert and oriented x 4, VSS, expecting to going home. Telemetry in place, Sinus tavia, denies any pain at this time. Assessment completed, meds provided. No further needs at this time. Call light within reach.
[2023-01-19 09:00] VITALS: BP_SYST 148
[2023-01-19 11:07] VITALS: BP 148/76; PULSE 71; TEMP 97.6
--- NOTE | 2023-01-19 11:30 | NUR ---
Patient was provided with discharge information, all questions answered. No IV accces in place. Telemetry was discontinued. Pt awaiting for to go home.
--- NOTE | 2023-01-19 13:01 | NUR ---
Business Services Intern met with Patient to discuss discharge planning. Patient will discharge today with transportation provided by his . Patient states to have home care services provided by [facility] that comes in one hour per day for assistance. Patient also states that he recieves assistance with bathing and dressing. Patient states that he has no concerns or needs for other services at this time. Discharge Plan: Home today.
== END 2023-01-19 12:30 | disposition home or self-care (01) | DRG 698 ==
LOC: COL.ER 15:57 → MEDICAL 19:10
PROVIDERS: Emergency Medicine; Nurse Practitioner Family; ADMIT Internal Medicine
DX: T83.518A Infection and inflammatory reaction due to other urinary catheter, initial encounter (principal); A41.9 Sepsis, unspecified organism; G82.52 Quadriplegia, C1-C4 incomplete; N39.0 Urinary tract infection, site not specified; Z94.84 Stem cells transplant status; F32.A Depression, unspecified; N31.9 Neuromuscular dysfunction of bladder, unspecified; Z20.822 Contact with and (suspected) exposure to COVID-19; I10 Essential (primary) hypertension; D64.9 Anemia, unspecified; R33.8 Other retention of urine; I08.1 Rheumatic disorders of both mitral and tricuspid valves; Y84.6 Urinary catheterization as the cause of abnormal reaction of the patient, or of later complication, without mention of misadventure at the time of the procedure; G47.30 Sleep apnea, unspecified; B95.1 Streptococcus, group B, as the cause of diseases classified elsewhere; Z79.899 Other long term (current) drug therapy; Z23 Encounter for immunization
CPT/HCPCS: J0692; J0696; J7030; Q3014

== ENCOUNTER 2023-02-04 09:01 | Day surgery (SDC) | payer MEDICARE ==
[~2023-02-04] VITALS: Ht 177.8 cm; Wt 100.0 kg
[2023-02-04] VITALS (7 sets, daily range): BP systolic 130–152; BP diastolic 69–88; PULSE 60–75; TEMP 96.9–97.3
[~2023-02-04 09:01] MED LIST changes: +CEPHALEXIN500 M1 PO; +LIORESAL20 MG PO; +MONUROL 3 GM3 G/PKT PO; +OMNICEF 300MG300 MG PO; +ULTRAM 50MG TAB50 MG PO; +UREX1 GM PO; +XALATAN EYE DROPS OU
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
--- NOTE | 2023-02-04 14:30 | NUR ---
1415:DISCHARGE TEACHING COMPLETED WITH PRINTED EDUCATION AND INSTRUCTIONS SENT HOME WITH PATIENT AND SPOUSE. INSTRUCTED PATIENT TO WAIT FOR CALL FROM UROLOGY OFFICE TO DISCUSS FOLLOW UP APPOINTMENT AND TO CALL THE OFFICE IF THEY HAD NOT HEARD FROM THEM BY THE END OF NEXT WEEK. PATIENT AND SPOUSE VERBALIZED UNDERSTANDING OF TEACHING. 1419: 300MLS OF YELLOW COLORED URINE EMPTIED FROM LEG BAG. PATIENT DENIES PAIN, NAUSEA AND SHORTNESS OF BREATH. TOLERATING FOOD AND DRINK. IV REMOVED. GAUZE AND COBAN PLACED OVER SITE. PATIENT CHANGED INTO PERSONAL CLOTHING AND DISCHARGED HOME WITH SPOUSE, GIRISH, TRANSPORT.
== END 2023-02-04 14:30 | disposition home or self-care (01) ==
LOC: SDCO 09:01
DX: N35.914 Unspecified anterior urethral stricture, male (principal); N20.1 Calculus of ureter; N31.9 Neuromuscular dysfunction of bladder, unspecified; R33.8 Other retention of urine; N32.1 Vesicointestinal fistula; Z87.440 Personal history of urinary (tract) infections
CPT/HCPCS: C1769; J0690; J1100; J2405; J2704; J3010; J7120

== ENCOUNTER 2023-02-22 10:12 | Day surgery (SDC) | payer MEDICARE ==
[~2023-02-22] VITALS: Ht 177.8 cm; Wt 99.5 kg
[2023-02-22] VITALS (17 sets, daily range): BP systolic 103–148; BP diastolic 46–94; PULSE 63–70; TEMP 97.5–97.8
[2023-02-22] MEDS ORDERED: CRESTOR20 MG PO (11:06)
[2023-02-22] MEDS ORDERED: XALATAN EYE DROPS (11:06)
[2023-02-22 11:41] LABS: BASO % 0.4 % (0.0-2.0); EOS # 0.2 K/mm3 (0.0-0.7); EOS % 2.4 % (0.0-4.0); GRAN # 5.2 K/mm3 (1.4-6.5); GRAN % 72.9 % (42.2-75.2); HEMATOCRIT 38.8 % (42.0-52.0); HEMOGLOBIN 12.4 g/dl (13.5-18.0); LYMPH # 1.3 K/mm3 (1.2-3.4); LYMPH % 17.9 % (20.0-51.0); MEAN CELL VOLUME 95 fl (80.0-100.0); MEAN CORPUSCULAR HEMOGLOBIN 30 pg (27-31); MEAN CORPUSCULAR HGB CONC 32 g/dl (33.0-37.0); MEAN PLATELET VOLUME 9.6 fl (7.4-10.4); MONO # 0.4 K/mm3 (0.1-0.6); MONO % 6.1 % (1.7-9.3); PLATELET COUNT 207 K/mm3 (130-400); RED BLOOD COUNT 4.09 M/mm3 (4.20-5.60); REDCELL DISTRIBUTION WIDTH-CV 13.4 % (11.5-14.5)
[2023-02-22 11:45] LABS: CALCIUM 9.3 mg/dL (8.4-10.2); CREATININE, serum 1.16 mg/dL (0.72-1.25); POTASSIUM 4.4 mmol/L (3.5-4.5)
--- NOTE | 2023-02-22 12:48 | NUR ---
PATIENT TO BAY 4 AT 1028 VIA WHEELCHAIR. ALERT AND ORIENTED X4. PATIENT STATED UNDERSTANDING OF PROCEDURE. CONSENTS SIGNED. ASSESSMENT COMPLETED. 20G IV STARTED IN LEFT FOREARM. LR INFUSING WITHOUT DIFFICULTIES. RESTING IN COT. NO FURTHER NEEDS NOTED. CALL LIGHT IN REACH. AT BEDSIDE.
--- NOTE | 2023-02-22 14:30 | NUR ---
REPORT GIVEN TO JOSE EDUARDO AND ANOTHER NURSE. PT DID WELL AND CARE IS TURNED OVER TO VTC NURSES.
--- NOTE | 2023-02-22 14:58 | NUR ---
1318: PATIENT TO RADIOLODY VIA CART AT THIS TIME 1426: BACK FROM RADIOLOGY AT THIS TIME. TEGADERM DRESSING TO BACK C/D/I. PATIENT HAS NO C/O PAIN AT THIS TIME.
--- NOTE | 2023-02-22 16:40 | NUR ---
REPORT RECEIVED FROM PACU NURSE. PT UP TO FLOOR AT THIS TIME. PT A/O X4, PAIN 4/10, TOLERATING ADVANCING DEIT, FAMILY AT BEDSIDE, VITALS STABLE, INCISION ON LEFT UPPER FLANK TO SKIN GLUE, WILL CONTINUE TO MONITOR.
--- NOTE | 2023-02-22 20:00 | NUR ---
PATIENT IS A&O. VSS. C/O MILD BLADDER DISCOMFORT, GAVE PRN LEVSIN WITH HS MEDS. PATIENT HAS CHRONIC SUPERPUBIC HUTCHINSON THAT IS TO DD. CBI INFUSING AT MOD TO FAST RATE WITH REDDISH URINE NOTED. IV FLUIDS INFUSING VIA PUMP INTO LEFT FORARM IV. HEAD TO TOE ASSESSMENT COMPLETE. SCD'S TO BLE.
[2023-02-23 00:31] VITALS: BP 108/59; PULSE 70; TEMP 97.9
[2023-02-23 01:00] VITALS: BP_SYST 108
[2023-02-23 04:29] VITALS: BP 153/84; PULSE 70; TEMP 98.1
[2023-02-23 07:45] VITALS: BP 130/70; PULSE 72; TEMP 98.2
[2023-02-23 09:00] VITALS: BP_SYST 105
[2023-02-23 10:38] VITALS: BP 105/61; PULSE 77; TEMP 97.8
--- NOTE | 2023-02-23 10:38 | NUR ---
DISCHARGE INSTRUCTIONS PROVIDED. PATIENT EDUCATION GIVEN. IV DC'D. FOLLOW UP APPOINTMENT DISCUSSED. PATIENT DENIES ANY QUESTIONS OR CONCERNS AT THIS TIME. PATIENT DENIES NEED FOR LEG BAD EDUCATION. PATIENT REPORTS PERFORMED ALL HUTCHINSON CARE.
--- NOTE | 2023-02-23 12:43 | NUR ---
PATIENT ESCORTED OUT VIA WHEELCHAIR WITH .
== END 2023-02-23 12:43 | disposition home or self-care (01) ==
LOC: SDCO 10:12 → EDSTATUS 15:00 → COL.RAD 15:00 → SDCO 15:00 → SURG 16:40 → SDCO 02-23 12:43 → EDSTATUS 03-08 07:00 → COL.RAD 03-08 07:00 → SDCO 03-08 07:00 → COL.RAD 03-08 07:30
PROVIDERS: Urology
DX: N20.0 Calculus of kidney (principal)
CPT/HCPCS: OP; C1726; C1769; C1894; C2617; J0330; J0690; J1100; J2250; J2405; J2704; J3010; J7120; Q9967